=== PATIENT | male | born 1995 | race Caucasian/White ===

== ENCOUNTER 2020-10-04 17:49 | Emergency (ER) | payer SELFPAY ==
[2020-10-04 17:54] VITALS: BP 112/67; PULSE 66; RESP 18; O2SAT 93; BMI 18.7
--- NOTE | 2020-10-04 17:58 | XRR_ITS ---
PROCEDURE INFORMATION: Exam: XR Chest Exam date and time: 10/04/2020 5:58 PM Age: 25 years old Clinical indication: Shortness of breath; Additional info: SOB TECHNIQUE: Imaging protocol: XR of the chest. Views: 1 view. COMPARISON: CT abdomen pelvis w con* [id number] 05/26/2015 2:44 PM FINDINGS: Lungs: Unremarkable. No consolidation. Pleural spaces: Unremarkable. No pleural effusion. No pneumothorax. Heart/Mediastinum: Unremarkable. No cardiomegaly. Bones/joints: Unremarkable. XR/XR chest 1V portable [id number] IMPRESSION: No acute findings.
--- NOTE | 2020-10-04 18:04 | W.ED.GENADLT ---
HPI - General Adult General: Chief complaint: Weakness Stated complaint: heat exhaustion/ drug abuse Time Seen by Provider: 10/04/20 17:50 Source: patient and EMS Mode of arrival: EMS Limitations: no limitations History of Present Illness: HPI narrative: 25-year-old male has a history of methamphetamine abuse. 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 EMS was called he was having some wheezing and he is quite anxious here likely from the methamphetamine abuse. He states he has muscle aches he felt like he was going to pass out. States he feels a little improved since being out of the heat. Associated symptoms: Reports dyspnea; Deny chest pain, nausea, rash or vomiting Review of Systems Const: Denies: fever(s), chills, body aches or change in appetite Eyes: Denies: blurry vision or eye discomfort ENMT: Denies: throat pain or dental pain Card: Denies: chest pain Resp: Reports: dyspnea GI: Denies: abdominal pain, nausea, vomiting or diarrhea : Denies: dysuria Musc: Denies: neck pain or back pain Skin/Breast: Denies: rash Neuro: Reports: weakness in extremities Psych: Reports: anxiety; Denies: depression Raza/Lymph: Denies: easy bruising All/Imm: Denies: urticaria Physical Exam Const: COMMON NORMALS: no acute distress, patient oriented x3 and healthy appearing GENERAL APPEARANCE: anxious and disheveled HENMT: COMMON NORMALS: normocephalic and atraumatic HEAD & SCALP: normocephalic and atraumatic Eye: COMMON NORMALS: Equal, round and reactive pupils present and EOMs intact bilaterally PUPIL: Yes Equal, round and reactive pupils present Neck/C-Spine: COMMON NORMALS: full ROM and supple Chest: COMMONS NORMALS: normal inspection of the chest and normal palpation of entire chest wall Resp: COMMON NORMALS: normal respiratory effort, No retractions and No use of accessory muscles EFFORT & INSPECTION: Yes audible wheezes AUSCULTATION: wheezes Cardio: COMMON NORMALS: regular rate, regular rhythm and No murmurs present (Cardio) RATE: regular rate RHYTHM: regular rhythm GI: COMMON NORMALS: Normal to inspection, nondistended, normoactive bowel sounds present, Soft to palpation, non-tender and no masses PALPATION: Yes Soft to palpation Extremity: COMMON NORMALS: normal to inspection and full ROM Neuro: COMMON NORMALS: patient oriented x3, moves all extremities and no focal motor deficits Psych: COMMON NORMALS: mental status grossly normal, Normal thought process present and cooperative THOUGHT PROCESS: Normal thought process present Skin: COMMON NORMALS: no rashes or lesions noted and no wounds GENERAL SKIN EXAM: no rashes or lesions noted Course Vital Signs: Vital signs: Vital Signs Pulse Rate 54 L 10/04/20 20:44 Respiratory Rate 18 10/04/20 20:44 Blood Pressure 121/70 10/04/20 20:44 Pulse Oximetry 99 10/04/20 20:44 MDM - General Adult MDM Narrative: Medical decision making narrative: Patient presents with heat exposure along with methamphetamine abuse. He was quite anxious upon arrival. His chest x-ray here is normal and troponins are negative as well. Is no signs of pulmonary embolism or acute coronary syndrome. He feels improved after IV fluids. Patient discharged into police custody has multiple warrants out for his arrest. Lab Data: Labs: Lab Results 10/04/20 10/04/20 10/04/20 Range/Units 18:05 18:05 18:05 WBC 6.6 (4.0-10.0) 10^3/ uL RBC 5.70 H (4.1-5.3) 10^6/u L Hgb 17.9 H (11.7-16.6) g/dL Hct 51.0 (42.0-52.0) % MCV 89.5 (80-94) fL MCH 31.4 (28.0-34.0) pg MCHC 35.1 (30.0-36.0) g/dL RDW 11.8 L (12.1-15.1) % Plt Count 184 (130-400) 10^3/c mm MPV 11.3 H (7.4-10.4) fL Neut % (Auto) 63.9 % Lymph % (Auto) 22.7 % [place] % (Auto) 11.9 % Eos % (Auto) 0.6 % Baso % (Auto) 0.6 % Neut # (Auto) 4.23 (1.8-7.7) 10^3/u L Lymph # (Auto) 1.5 (0.8-4.8) 10^3/u L [place] # (Auto) 0.8 (0.2-0.9) 10^3/u L Eos # (Auto) 0.0 (0.0-0.8) 10^3/u L Baso # (Auto) 0.0 (0.0-0.1) 10^3/u L Nucleated RBC % (a uto) 0 % Nucleated RBCs # 0.0 /100WBC Sodium 141 (136-145) mmol/L Potassium 3.1 L (3.5-5.1) mmol/L Chloride 107 (98-107) mmol/L Carbon Dioxide 18 L (22-29) mmol/L Anion Gap 19.1 H (5-19) BUN 12 (6-20) mg/dL Creatinine 0.8 (0.7-1.2) mg/dL GFR Calculation 117.8 (90-130) mL/min Glucose 90 (65-115) mg/dL Calculated Osmolal ity 291 (285-295) mOsm/k g Calcium 8.7 (8.5-10.5) mg/dL Total Bilirubin 1.0 (0.15-1.2) mg/dL AST 24 (0-40) U/L ALT 21 (0-41) U/L Alkaline Phosphata se 49 (40-130) IU/L Creatine Kinase 390 H* (39-308) U/L Troponin T Baselin e 7 (0-15) ng/L Troponin T 120 Min [place] (0-15) ng/L Delta Troponin T (0-10) ABS# Total Protein 7.0 (6.6-8.7) g/dL Albumin 4.3 (3.5-5.2) g/dL Globulin 2.7 (1.3-4.6) g/dL Urine Color (Yellow) Urine Appearance (CLEAR) Urine pH (5-7) Ur Specific Gravit y (1.005-1.030) Urine Protein (Negative) Urine Glucose (UA) (Normal) Urine Ketones (Negative) Urine Blood (Negative) Urine Nitrate (Negative) Urine Bilirubin (Negative) Urine Urobilinogen (Negative) mg/dL Ur Leukocyte Alanna ase (Negative) Urine RBC (0-2) /hpf Urine WBC (0-5) /hpf Ur Squamous Epith Cells (0-5) /hpf Amorphous Sediment Urine Bacteria (NONE) /hpf Urine Opiates Scre en (Negative) ng/mL Ur Barbiturates Sc reen (Negative) ng/mL Ur Phencyclidine S crn (Negative) ng/mL Ur Amphetamines Sc reen (Negative) ng/mL U Benzodiazepines Scrn (Negative) ng/mL Urine Cocaine Scre en (Negative) ng/mL U Marijuana (THC) Screen (Negative) ng/mL 10/04/20 10/04/20 10/04/20 Range/Units 18:13 18:13 20:13 WBC (4.0-10.0) 10^3/ uL RBC (4.1-5.3) 10^6/u L Hgb (11.7-16.6) g/dL Hct (42.0-52.0) % MCV (80-94) fL MCH (28.0-34.0) pg MCHC (30.0-36.0) g/dL RDW (12.1-15.1) % Plt Count (130-400) 10^3/c mm MPV (7.4-10.4) fL Neut % (Auto) % Lymph % (Auto) % [place] % (Auto) % Eos % (Auto) % Baso % (Auto) % Neut # (Auto) (1.8-7.7) 10^3/u L Lymph # (Auto) (0.8-4.8) 10^3/u L [place] # (Auto) (0.2-0.9) 10^3/u L Eos # (Auto) (0.0-0.8) 10^3/u L Baso # (Auto) (0.0-0.1) 10^3/u L Nucleated RBC % (a uto) % Nucleated RBCs # /100WBC Sodium (136-145) mmol/L Potassium (3.5-5.1) mmol/L Chloride (98-107) mmol/L Carbon Dioxide (22-29) mmol/L Anion Gap (5-19) BUN (6-20) mg/dL Creatinine (0.7-1.2) mg/dL GFR Calculation (90-130) mL/min Glucose (65-115) mg/dL Calculated Osmolal ity (285-295) mOsm/k g Calcium (8.5-10.5) mg/dL Total Bilirubin (0.15-1.2) mg/dL AST (0-40) U/L ALT (0-41) U/L Alkaline Phosphata se (40-130) IU/L Creatine Kinase (39-308) U/L Troponin T Baselin e (0-15) ng/L Troponin T 120 Min [place] 6.25 (0-15) ng/L Delta Troponin T -0.75 L (0-10) ABS# Total Protein (6.6-8.7) g/dL Albumin (3.5-5.2) g/dL Globulin (1.3-4.6) g/dL Urine Color Pham (Yellow) Urine Appearance Clear (CLEAR) Urine pH 5 (5-7) Ur Specific Gravit y 1.025 (1.005-1.030) Urine Protein 1+ H (Negative) Urine Glucose (UA) Norm (Normal) Urine Ketones 1+ H (Negative) Urine Blood Trace H (Negative) Urine Nitrate Negative (Negative) Urine Bilirubin 1+ H (Negative) Urine Urobilinogen 1 H (Negative) mg/dL Ur Leukocyte Alanna ase Trace H (Negative) Urine RBC 0-4 H (0-2) /hpf Urine WBC 0-4 H (0-5) /hpf Ur Squamous Epith Cells 10-15 H (0-5) /hpf Amorphous Sediment Not Reportable Urine Bacteria Trace (NONE) /hpf Urine Opiates Scre en Negative (Negative) ng/mL Ur Barbiturates Sc reen Negative (Negative) ng/mL Ur Phencyclidine S crn Negative (Negative) ng/mL Ur Amphetamines Sc reen Positive H (Negative) ng/mL U Benzodiazepines Scrn Negative (Negative) ng/mL Urine Cocaine Scre en Negative (Negative) ng/mL U Marijuana (THC) Screen Positive H (Negative) ng/mL Imaging Data^: CXR: Radiologist's impression: [facility] [address] [place] [address] XRay Report Signed Patient: Magdy Barrientos Unit #: [id number] : 1995 Age/Sex: 25 / M ADM Date: 10/04/20 Loc: ER Room/Bed: Attending Dr: Ordering Provider/Ordering MD: Maximus Layne MD Date of Service: 10/04/20 Procedure(s): XR chest 1V portable [id number] Accession Number(s): [id number] Report Number: [id number] PROCEDURE INFORMATION: Exam: XR Chest Exam date and time: 10/04/2020 5:58 PM Age: 25 years old Clinical indication: Shortness of breath; Additional info: SOB TECHNIQUE: Imaging protocol: XR of the chest. Views: 1 view. COMPARISON: CT abdomen pelvis w con* [id number] 05/26/2015 2:44 PM FINDINGS: Lungs: Unremarkable. No consolidation. Pleural spaces: Unremarkable. No pleural effusion. No pneumothorax. Heart/Mediastinum: Unremarkable. No cardiomegaly. Bones/joints: Unremarkable. XR/XR chest 1V portable [id number] IMPRESSION: No acute findings. Dictated By: Samson St MD Signed By: Samson St MD EKG Data^: EKG 1: Attestation: I personally reviewed and interpreted this EKG as follows: EKG interpretation date: 10/04/20 EKG interpretation time: 19:42 Interpretation: sinus josi hr [address] or t wave abnormalities qrs 105 qtc 444 Computer generated interpretation: Chest X-Ray 10/04/20 17:58 IMPRESSION: No acute findings. Discharge Plan Discharge Patient Disposition: Home Clinical Impression: Methamphetamine abuse Heat exposure Qualifiers: Encounter type: initial encounter Qualified Code(s): T67.9XXA - Effect of heat and light, unspecified, initial encounter Condition: Stable Prescriptions: No Action No Known Home Medications RF: 0 Discharge Orders: Discharge ED (Routine); Ordered 10/04/20 Ordered By: Maximus Layne Discharge Diet: Advance as tolerated Discharge Activity: Resume usual activity Patient Instructions: Heat Exhaustion (ED), Methamphetamine Abuse (ED) Coding Level of Care Code ED [employer] for Chg Fwd Exam Comprehensive
[2020-10-04] MEDS: sodium chloride 0.9% 1,000 ML 999 ML IV ×2 (18:12→18:53)
[2020-10-04 18:18] LABS: Basophils % 0.6 %; Eosinophils % 0.6 %; Hemoglobin 17.9 g/dL (11.7-16.6); Lymphocytes # 1.5 10^3/uL (0.8-4.8); Lymphocytes % 22.7 %; Mean Corpuscular HGB Conc 35.1 g/dL (30.0-36.0); Mean Corpuscular Hemoglobin 31.4 pg (28.0-34.0); Mean Corpuscular Volume 89.5 fL (80-94); Mean Platelet Volume 11.3 fL (7.4-10.4); Monocytes # 0.8 10^3/uL (0.2-0.9); Monocytes % 11.9 %; Neutrophils # 4.23 10^3/uL (1.8-7.7); Neutrophils % 63.9 %; Nucleated Red Blood Cells % 0 %; Platelet Count 184 10^3/cmm (130-400); Red Cell Distribution Width 11.8 % (12.1-15.1); White Blood Count 6.6 10^3/uL (4.0-10.0)
[2020-10-04 18:27] VITALS: PULSE 55; RESP 20; O2SAT 96
[2020-10-04 18:32] LABS: Alanine Aminotransferase 21 U/L (0-41); Albumin Level 4.3 g/dL (3.5-5.2); Alkaline Phosphatase 49 IU/L (40-130); Anion Gap 19.1 (5-19); Aspartate Amino Transferase 24 U/L (0-40); Blood Urea Nitrogen 12 mg/dL (6-20); Calcium 8.7 mg/dL (8.5-10.5); Carbon Dioxide 18 mmol/L (22-29); Chloride 107 mmol/L (98-107); Globulin 2.7 g/dL (1.3-4.6); Glomerular Filtration Rate 117.8 mL/min (90-130); Glucose 90 mg/dL (65-115); Osmolality Calculated 291 mOsm/kg (285-295); Potassium 3.1 mmol/L (3.5-5.1); Sodium 141 mmol/L (136-145)
[2020-10-04] MEDS: ipratropium-albuterol 3 mL Neb INHALATION (18:32)
[2020-10-04 18:34] LABS: Creatine Phosphokinase 390 U/L (39-308)
[2020-10-04 18:35] VITALS: PULSE 58
[2020-10-04 18:55] LABS: Slide Review Slide Review Perform
[2020-10-04 19:17] LABS: Cocaine Screen Urine Negative (Negative); Opiate Screen Urine Negative (Negative); PCP Screen Urine Negative (Negative); THC Screen Urine Positive (Negative); Urine Appearance Clear (CLEAR); Urine Color Amber (Yellow)
[2020-10-04 19:18] LABS: Add Urine Microscopic? YES; Bacteria Urine TRACE /hpf; Bilirubin Urine 1+ (Negative); Blood Urine Trace (Negative); Glucose Urine UA Norm (Normal); Ketones Urine 1+ (Negative); Leukocyte Esterase Urine Trace (Negative); Nitrate Urine Negative (Negative); Protein Urine 1+ (Negative); RBC Urine 0-4 /hpf (0-2); Specific Gravity, Urine 1.025 (1.005-1.030); Urobilinogen Urine 1 mg/dL (Negative); WBC Urine 0-4 /hpf (0-5); pH Urine 5 (5-7)
--- NOTE | 2020-10-04 19:34 | ECG_ITS ---
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 Measurements Intervals [place] Rate: 53 P: 76 CA: 143 QRS: 105 QRSD: 105 T: 84 QT: 462 QTc: 434 Interpretive Statements SINUS BRADYCARDIA MARKED RIGHT AXIS DEVIATION [QRS AXIS > 100] ST ELEVATION, PROBABLY EARLY REPOLARIZATION [ST ELEVATION WITH NORMALLY INFLECTED T WAVE] MODERATE ST DEPRESSION [0.05+ mV ST DEPRESSION] No previous ECG available for comparison Electronically Signed On 10-11-2020 12:35:54 CDT by Yana Rehman M.D. [email or web address]
[2020-10-04] MEDS: LORazepam 2 mg/mL INJ 1 mL IVP (19:41)
[2020-10-04 19:58] LABS: Amphetamines Screen Urine Positive (Negative); Barbiturates Screen Urine Negative (Negative); Benzodiazepines Screen Urine Negative (Negative)
[2020-10-04 20:01] LABS: Troponin(5th) Baseline 7 ng/L (0-15)
[2020-10-04 20:02] VITALS: BP 121/70; PULSE 58; RESP 12; O2SAT 95
[2020-10-04 20:39] LABS: Troponin 5 2HR 6.25 ng/L (0-15)
[2020-10-04 20:42] LABS: Troponin 5 2HR Delta -0.75 ABS# (0-10)
[2020-10-04 20:44] VITALS: BP 121/70; PULSE 54; RESP 18; O2SAT 99
== END 2020-10-04 21:34 | disposition home or self-care (01) ==
PROVIDERS: Emergency Provider Emergency Medicine
DX: F15.10 Other stimulant abuse, uncomplicated (principal)
CPT/HCPCS: 71045; 80053; 80306; 81001; 82550; 84484; 85025; 93005; 94640; 96361; 96374; 99284; J2060; J7030